=== PATIENT | male | born 1950 | race Caucasian/White ===

== ENCOUNTER → 2020-07-09 08:20 | Outpatient (BNVA) | payer OTHER, MEDICARE, SELFPAY | PROVIDERS: PCP Nurse Practitioner Family; Referring Provider Nurse Practitioner Family; Visit Provider Physician Assistant | DX: Z76.89 Persons encountering health services in other specified circumstances (principal) ==

== ENCOUNTER → 2020-08-18 10:09 | Outpatient (BNVA) | payer OTHER, MEDICARE, SELFPAY | PROVIDERS: PCP Nurse Practitioner Family; Referring Provider Nurse Practitioner Family; Visit Provider Physician Assistant | DX: Z76.89 Persons encountering health services in other specified circumstances (principal) ==

== ENCOUNTER → 2020-11-11 08:43 | Outpatient (BNVA) | payer OTHER, MEDICARE, SELFPAY | PROVIDERS: PCP Internal Medicine Endocrinology, Diabetes & Metabolism; Visit Provider Physician Assistant ==

== ENCOUNTER → 2021-05-05 07:55 | Outpatient (BNVA) | payer OTHER, SELFPAY | PROVIDERS: PCP Internal Medicine Endocrinology, Diabetes & Metabolism; Visit Provider Physician Assistant | DX: K20.90 Esophagitis, unspecified without bleeding (principal); Z86.010 Personal history of colon polyps | CPT/HCPCS: 99202 ==

== ENCOUNTER 2021-07-14 07:37 | Day surgery (SDC) | payer OTHER, SELFPAY ==
[2021-07-08 12:08] VITALS: BMI 29.1
[2021-07-08 12:13] VITALS: BP 116/74; PULSE 68; RESP 20; O2SAT 96
--- NOTE | 2021-07-08 12:31 | HO.ANESPROP2 ---
Documented by User: Hanane Ge NP 07/08/21 12:45 HPI - Anesthesia Eval Consult details Narrative: 70yo M for Upper Endoscopy and Colonoscopy Cardiac cleared at moderate risk h/o aflutter with hypovolemia - eliquis d/c'd by cardiol; pt on plavix/asa. To hold plavix preop, remain on asa PMFSH Active Problems Active Problems: All Active Problems (Updated 07/08/21 @ 11:57 by Minerva Chaparro RN) Elevated PSA (Acute) S/P triple vessel bypass (Acute) Esophagitis (Acute) History of colon polyps (Acute) Dyslipidemia (Acute) Past Medical History Medical History Anxiety CAD (coronary artery disease) Dyslipidemia Esophagitis History of colon polyps Large hiatal hernia Paroxysmal atrial fibrillation PVD (peripheral vascular disease) Family History Family History Mother Colon cancer Family history of problems with anesthesia: No Surgical History Surgical History H/O colonoscopy History of esophagogastroduodenoscopy (EGD) History of left-sided carotid endarterectomy History of repair of hiatal hernia Hx of cardiac catheterization Hx of cervical discectomy Hx of hand surgery S/P triple vessel bypass History of Problems with Anesthesia: No Social History Social History (Updated 05/05/21 @ 08:15 by Angelina Lockwood PA-C) Household Members: Spouse Household Members Other:: Are you a primary critical care educator to a significant other at home: No Do you presently have visiting nurse or other home services: No Alcohol intake: current Patient Tobacco Use Status: Former Tobacco user Quit Date: age 29 Tobacco use type: Cigarette Years Smoked: 13 Use of substances other than those prescribed or required for medical reasons: Yes Have you been hit, kicked, punched, or otherwise hurt by someone within the past year? If so, by whom?: No Are you DNR?: No Advance Directives Information Provided: Yes (informational brochure given) Advance Directives on File: No Recently lost weight without trying: No Eating poorly because of decreased appetite: No Nutrition Risks: No Nutritional Risk Poor oral hygiene: No Current occupational status: employed Meds Allergies Allergy/AdvReac Type Severity Reaction Status Date / Time No Known Allergies Allergy Verified 07/07/21 10:20 [No Known Allergies*] Home Medications Medication Instructions Recorded Confirmed Last Taken Type aspirin 81 mg tablet,delayed 81 mg PO DAILY 07/09/20 07/07/21 07/08/21 History release diazepam 5 mg tablet 5 mg PO BEDTIME PRN 07/09/20 07/07/21 Unknown History fluticasone propionate 50 1 spray INTRANASAL DAILY 07/09/20 07/07/21 Unknown History mcg/actuation nasal spray,suspension (Allergy Relief (fluticasone)) metoprolol succinate 25 mg 25 mg PO DAILY 07/09/20 07/07/21 Unknown History tablet,extended release 24 hr omega 2-yqx-elg-fish oil 300 1 cap PO DAILY 07/09/20 07/07/21 Unknown History mg-1,000 mg capsule (Fish Oil) omeprazole 20 mg capsule,delayed 20 mg PO DAILY 07/09/20 07/07/21 Unknown History release atorvastatin 80 mg tablet 80 mg PO BEDTIME 07/07/21 07/07/21 Unknown History clopidogrel 75 mg tablet 75 mg PO DAILY 07/07/21 07/07/21 07/08/21 History furosemide 20 mg tablet 20 mg PO DAILY PRN 07/07/21 07/07/21 Unknown History apixaban 5 mg tablet (Eliquis) 1 tab PO BID 07/14/21 07/14/21 07/08/21 History Exam Exam Date and Time: July 08, 2021 1231 Height,Weight and Vital Signs: Height 5 ft 11 in Weight 94.801 kg Last Vital Signs Pulse 68 07/08/21 12:13 Resp 20 07/08/21 12:13 BP 116/74 07/08/21 12:13 Pulse Ox 96 07/08/21 12:13 Narrative Narrative: EKG 01/2021 NSR with increased precordial voltage and increased T waves with nonspecific inferior T wave changes and small Q waves Echo 11/2020 LV size is normal LVEF 65-70% Diastolic filling pattern is normal Paradoxical septal motion c/w post-op status Sigmoid shaped septum with focal hypertrophy of the basal septum. 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 RV systolic function is at the low end of normal Aortic valve is mildly calcified Mild to moderate aortic regurg Trace mitral regurg No pulm htn Holter 02/2021 Predominately sinus rhythm; no afib/flutter Airway Mallampati Class: I TM Dist: >3cm Neck ROM: Full (S/p c6-7 discectomy) Loose/Missing/Broken Teeth: No Heart: RRR +M Lungs: CTAB Assessment and Plan Assessment Anesthesia Assessment: Chart Reviewed Final Anesthetic Review Family History of Problems with Anesthesia: No History of Problems with Anesthesia: No Documented by User: Esperanza Ochoa MD 07/14/21 09:34 [facility] Past Medical History Medical History Anxiety CAD (coronary artery disease) Dyslipidemia Esophagitis History of colon polyps Large hiatal hernia Paroxysmal atrial fibrillation PVD (peripheral vascular disease) Functional capacity: independent ambulation Family History Family History Mother Colon cancer Surgical History Surgical History H/O colonoscopy History of esophagogastroduodenoscopy (EGD) History of left-sided carotid endarterectomy History of repair of hiatal hernia Hx of cardiac catheterization Hx of cervical discectomy Hx of hand surgery S/P triple vessel bypass Social History Social History (Updated 05/05/21 @ 08:15 by Angelina Lockwood PA-C) Household Members: Spouse Household Members Other:: Are you a primary critical care educator to a significant other at home: No Do you presently have visiting nurse or other home services: No Alcohol intake: current Patient Tobacco Use Status: Former Tobacco user Quit Date: age 29 Tobacco use type: Cigarette Years Smoked: 13 Use of substances other than those prescribed or required for medical reasons: Yes Have you been hit, kicked, punched, or otherwise hurt by someone within the past year? If so, by whom?: No Are you DNR?: No Advance Directives Information Provided: Yes (informational brochure given) Advance Directives on File: No Recently lost weight without trying: No Eating poorly because of decreased appetite: No Nutrition Risks: No Nutritional Risk Poor oral hygiene: No Current occupational status: employed Meds Allergies Allergy/AdvReac Type Severity Reaction Status Date / Time No Known Allergies Allergy Verified 07/07/21 10:20 [No Known Allergies*] Home Medications Medication Instructions Recorded Confirmed Last Taken Type aspirin 81 mg tablet,delayed 81 mg PO DAILY 07/09/20 07/07/21 07/08/21 History release diazepam 5 mg tablet 5 mg PO BEDTIME PRN 07/09/20 07/07/21 Unknown History fluticasone propionate 50 1 spray INTRANASAL DAILY 07/09/20 07/07/21 Unknown History mcg/actuation nasal spray,suspension (Allergy Relief (fluticasone)) metoprolol succinate 25 mg 25 mg PO DAILY 07/09/20 07/07/21 Unknown History tablet,extended release 24 hr omega 8-vzv-jdc-fish oil 300 1 cap PO DAILY 07/09/20 07/07/21 Unknown History mg-1,000 mg capsule (Fish Oil) omeprazole 20 mg capsule,delayed 20 mg PO DAILY 07/09/20 07/07/21 Unknown History release atorvastatin 80 mg tablet 80 mg PO BEDTIME 07/07/21 07/07/21 Unknown History clopidogrel 75 mg tablet 75 mg PO DAILY 07/07/21 07/07/21 07/08/21 History furosemide 20 mg tablet 20 mg PO DAILY PRN 07/07/21 07/07/21 Unknown History apixaban 5 mg tablet (Eliquis) 1 tab PO BID 07/14/21 07/14/21 07/08/21 History Assessment and Plan Assessment Anesthesia Assessment: Anesthesia Plan Discussed Final Anesthetic Review ASA Class: II Final Preanesthetic Review: No Changes in Pt Med Stat Patient Risk: Intermediate Procedure Risk: Low Anesthetic Plan Anesthetic Plan: MAC: Disposition: Standard PACU
[2021-07-08 13:21] LABS: Hematocrit 45.4 % (42.0-52.0); Hemoglobin 14.2 g/dl (14.0-18.0); Mean Corpuscular HGB Conc 31.3 g/dl (31.0-36.0); Mean Corpuscular Hemoglobin 27.6 pg (27.0-33.0); Mean Corpuscular Volume 88.2 fL (80.0-98.0); Mean Platelet Volume 9.3 fL (9.4-12.4); Platelet Count 238 X10*3/uL (160-400); Red Blood Count 5.15 X10*6/uL (4.60-5.80); Red Cell Distribution Width 14.2 % (11.0-16.0); White Blood Count 7.9 X10*3/uL (4.8-10.8)
[2021-07-08 13:51] LABS: Alanine Aminotransferase 23 U/L (0-40); Albumin Level 4.1 g/dL (3.5-5.0); Alkaline Phosphatase 82 U/L (39-117); Anion Gap 13 (12-20); Aspartate Amino Transferase 20 U/L (5-37); Bilirubin Total 0.4 mg/dL (0.0-1.0); Blood Urea Nitrogen 19 mg/dL (9-16); Calcium 9.6 mg/dL (8.4-10.2); Carbon Dioxide 24 mmol/L (22-29); Chloride 111 mmol/L (96-108); Estimated Glomerular Filt Rate > 60; Glucose Random 90 mg/dL (60-115); Potassium 5.5 mmol/L (3.3-5.1); Sodium 142 mmol/L (135-145); Total Protein 6.8 g/dL (6.5-8.0)
[2021-07-14 08:23] VITALS: BP 137/85; PULSE 67; RESP 16; TEMP 36.1; O2SAT 95
--- NOTE | 2021-07-14 09:02 | MHC.SHP ---
Pre-Procedural Eval Section A Date of Service: 07/14/21 The patient is an INPATIENT: No The History & Physical has been completed within 30 days and I have reviewed it.: No Section B Chief Complaint: hx of colonic polyps Details of Present Illness: GERD, screening Relevant Family History (Specify if Yes): Yes Relevant Social History: None Present Medications: see Short Stay Collaborative assessment Medical History: Significant History (Dyslipidemia Esophagitis History of colon polyps Large hiatal hernia) History of Previous Operations: Relevant previous surgery/procedure and date(s) (S/P triple vessel bypass) Allergies: Allergies Allergy/AdvReac Type Severity Reaction Status Date / Time No Known Allergies Allergy Verified 07/07/21 10:20 [No Known Allergies*] Review of Systems Sugical H&P ROS: Negative: Constitution, Cardiovascular, Respiratory and Gastrointestinal Exam Surgical H&P Exam: Normal: Heart, Normal: Lungs, Normal: Extremities and Normal: Abdomen Plan Diagnosis/Plan: Unchanged I have reviewed the history and physical and performed a pertinent physical examination on my patient. No changes have occurred unless specified.
--- NOTE | 2021-07-14 09:48 | P.BOP_ITS ---
Brief Operative Note Date of Service: 07/14/21 Pre-op diagnosis: Colon cancer screening history of colon polyps, GERD Post-op diagnosis: other (GERD, gastric polyps, gastritis, colon polyps, diverticulosis, hemorrhoids) Procedure: FLEXIBLE TRANSORAL UPPER GASTROINTESTINAL ENDOSCOPY WITH BIOPSIES AND COLONOSCOPY TILL CECUM WITH BIOPSIES UPPER ENDOSCOPY Consent: Indications for the procedure and potential complications of bleeding, perforation, reaction to medications and missed diagnosis were discussed with the patient and informed consent was obtained. Instrument: Olympus GIF H 190 mid size upper endoscope Monitoring: Vital signs and clinical assessment, continuous EKG monitoring, Pulse oximetry, Carbon Dioxide monitoring and blood pressure monitoring were done throughout the procedure. Procedure: The patient was placed in the left lateral decubitis position and pre-procedure medications were administered and a bite block was placed. The endoscope was inserted into the mouth and advanced under direct vision to the third part of duodenum. A careful inspection was made as the upper endoscope was withdrawn including a retroflexed examination of the proximal stomach; Findings and interventions are described below. Findings: Larynx: Normal Esophagus: GE junction at 36 cms. No esophagitis or Quinonez's. Stricture noted on past EGD resolved. Stomach: Moderate diffuse gastric erythema with nodular appearing mucosa in the gastric body.. Biopsies were obtained from the body and antrum. Two 5 to 10 mm benign appearing polyps in the gastric body - biopsied. Grade 2 flap valve on retroflexed examination of the cardia. Duodenum: Normal bulb and descending duodenum Intervention: Biopsies as noted above COLONOSCOPY PROCEDURE NOTE Consent: Indications for the procedure and potential complications of bleeding, perforation, reaction to medications and missed diagnosis were discussed with the patient and informed consent was obtained. Instrument: Olympus PCF H 190 L variable stiffness pediatric colonoscope Monitoring: Vital signs and clinical assessment, intermittent blood pressure monitoring, continuous EKG monitoring, Pulse oximetry and Carbon Dioxide monitoring were done throughout the procedure. Colon withdrawl time was 19 minutes. Procedure: The patient was placed in the left lateral decubitis position and pre-procedure medications were administered. After a digital rectal examination of the ano-rectum, the video colonoscope was inserted into the rectum and advanced through the colon to the cecum. The colonoscope was slowly withdrawn in a retrograde panoramic fashion and the colon mucosa was carefully examined including a retroflexed view of the rectum. Findings and interventions are described below. Procedure Difficulty: : Without difficulty Findings: Terminal Ileum: Not evaluated Cecum: Normal Ascending Colon: Normal Transverse Colon: Two 5-6 mm sessile polyps removed with a cold bx. Descending Colon: Moderate diverticulosis Sigmoid Colon: A 6-7 mm sessile polyp removed with a cold bx and moderate diverticulosis Rectum: Normal Ano-rectum: Large internal hemorrhoids Colon preparation: Good after some irrigation Impression and Post Procedure Diagnosis: Endoscopy Findings: STOMACH: Moderate diffuse gastric erythema with nodular appearing mucosa in the gastric body.. Biopsies were obtained from the body and antrum. Two 5 to 10 mm benign appearing polyps in the gastric body - biopsied. DUODENUM: Normal Colonoscopy Findings: Three small polyps removed Moderate diverticulosis seen in the left colon Large hemorrhoids on retroflexed exam. Plan: Await pathology results Patient has an appointment on 07/28/21 in the GI Clinic with TEO Lawrence . Repeat Colonoscopy interval based on path results - in 3-5 years if polyps are adenomatous and 10 years if polyps are hyperplastic. Above findings were reviewed with the patient and GERD, gastric polyps, colon p olyps and diverticulosis handouts were given in the discharge area Surgeon: Chapito Escalante MD Anesthesia: MAC (Dr Breaux) Was an Scientific Software Developer used for this Procedure?: Yes Scientific Software Developer: Susan Mendieta Estimated blood loss (mL): 0 Pathology: other (A. gastric antrum bxs, R/O H. pylori B. gastric polyp bxs C. gastric body bxs D. transverse colon polyps (2) E. sigmoid polyp) Condition: stable Disposition: PACU
--- NOTE | 2021-07-14 09:54 | HO.ANESPROP2 ---
[facility] Active Problems Active Problems: All Active Problems (Updated 07/08/21 @ 12:36 by Minerva Chaparro RN) Elevated PSA (Acute) S/P triple vessel bypass (Acute) Esophagitis (Acute) History of colon polyps (Acute) Dyslipidemia (Acute) Past Medical History Medical History Anxiety CAD (coronary artery disease) Dyslipidemia Esophagitis History of colon polyps Large hiatal hernia Paroxysmal atrial fibrillation PVD (peripheral vascular disease) Functional capacity: independent ambulation Family History Family History Mother Colon cancer Family history of problems with anesthesia: No Surgical History Surgical History H/O colonoscopy History of esophagogastroduodenoscopy (EGD) History of left-sided carotid endarterectomy History of repair of hiatal hernia Hx of cardiac catheterization Hx of cervical discectomy Hx of hand surgery S/P triple vessel bypass History of Problems with Anesthesia: No Social History Social History (Updated 05/05/21 @ 08:15 by Angelina Lockwood PA-C) Household Members: Spouse Household Members Other:: Are you a primary physician assistant primary care to a significant other at home: No Do you presently have visiting nurse or other home services: No Alcohol intake: current Patient Tobacco Use Status: Former Tobacco user Quit Date: age 29 Tobacco use type: Cigarette Years Smoked: 13 Use of substances other than those prescribed or required for medical reasons: Yes Have you been hit, kicked, punched, or otherwise hurt by someone within the past year? If so, by whom?: No Are you DNR?: No Advance Directives Information Provided: Yes (informational brochure given) Advance Directives on File: No Recently lost weight without trying: No Eating poorly because of decreased appetite: No Nutrition Risks: No Nutritional Risk Poor oral hygiene: No Current occupational status: employed Meds Allergies Allergy/AdvReac Type Severity Reaction Status Date / Time No Known Allergies Allergy Verified 07/07/21 10:20 [No Known Allergies*] Active Medications: Current Medications Lactated Ringer's (Lr) 1,000 mls @ 100 mls/hr IVCONT .Q10H [facility] Home Medications Medication Instructions Recorded Confirmed Last Taken Type aspirin 81 mg tablet,delayed 81 mg PO DAILY 07/09/20 07/07/21 07/08/21 History release diazepam 5 mg tablet 5 mg PO BEDTIME PRN 07/09/20 07/07/21 Unknown History fluticasone propionate 50 1 spray INTRANASAL DAILY 07/09/20 07/07/21 Unknown History mcg/actuation nasal spray,suspension (Allergy Relief (fluticasone)) metoprolol succinate 25 mg 25 mg PO DAILY 07/09/20 07/07/21 Unknown History tablet,extended release 24 hr omega 0-zzu-pmz-fish oil 300 1 cap PO DAILY 07/09/20 07/07/21 Unknown History mg-1,000 mg capsule (Fish Oil) omeprazole 20 mg capsule,delayed 20 mg PO DAILY 07/09/20 07/07/21 Unknown History release atorvastatin 80 mg tablet 80 mg PO BEDTIME 07/07/21 07/07/21 Unknown History clopidogrel 75 mg tablet 75 mg PO DAILY 07/07/21 07/07/21 07/08/21 History furosemide 20 mg tablet 20 mg PO DAILY PRN 07/07/21 07/07/21 Unknown History apixaban 5 mg tablet (Eliquis) 1 tab PO BID 07/14/21 07/14/21 07/08/21 History Exam Exam Date and Time: July 14, 2021 0954 Height,Weight and Vital Signs: Height 5 ft 11 in Weight 94.801 kg Last Vital Signs Temp 96.9 F 07/14/21 08:23 Pulse 67 07/14/21 08:23 Resp 16 07/14/21 08:23 BP 137/85 07/14/21 08:23 Pulse Ox 95 07/14/21 08:23 Pertinent Lab Results Pertinent Lab Results: Laboratory Tests 07/08/21 07/08/21 12:53 12:53 WBC 7.9 RBC 5.15 Hgb 14.2 Hct 45.4 MCV 88.2 MCH 27.6 MCHC 31.3 RDW 14.2 Plt Count 238 MPV 9.3 L Absolute Nucleated RBC 0.000 Nucleated RBC % (auto) 0.0 Sodium 142 Potassium 5.5 H Chloride 111 H Carbon Dioxide 24 Anion Gap 13 BUN 19 H Creatinine 1.05 Estim Creat Clear Calc 78.0 Estimated GFR > 60 Random Glucose 90 Calcium 9.6 Total Bilirubin 0.4 AST 20 ALT 23 Alkaline Phosphatase 82 Total Protein 6.8 Albumin 4.1 Airway Mallampati Class: II TM Dist: >3cm Neck ROM: Full Heart: RarR Lungs: CTA Assessment and Plan Final Anesthetic Review Family History of Problems with Anesthesia: No History of Problems with Anesthesia: No ASA Class: II Final Preanesthetic Review: No Changes in Pt Med Stat Patient Risk: Intermediate Procedure Risk: Low Anesthetic Plan Anesthetic Plan: MAC: Disposition: Standard PACU
--- NOTE | 2021-07-14 10:32 | P.OP_ITS ---
Operative Note Operative Note Date of Service: 07/14/21 Narrative: Pre-op diagnosis:?Colon cancer screening history of colon polyps, GERD Post-op diagnosis:?other (GERD, gastric polyps, gastritis, colon polyps, diverticulosis, hemorrhoids) Procedure:? FLEXIBLE TRANSORAL UPPER GASTROINTESTINAL ENDOSCOPY WITH BIOPSIES AND COLONOSCOPY TILL CECUM WITH BIOPSIES UPPER ENDOSCOPY Consent:?Indications for the procedure and potential complications of bleeding, perforation, reaction to medications and missed diagnosis were discussed with the patient and informed consent was obtained. Instrument:?Olympus GIF H 190 mid size upper endoscope Monitoring: Vital signs and clinical assessment, continuous EKG monitoring, Pulse oximetry, Carbon Dioxide monitoring and blood pressure monitoring were done throughout the procedure. Procedure:?The patient was placed in the left lateral decubitis position and pre-procedure medications were administered and a bite block was placed. The endoscope was inserted into the mouth and advanced under direct vision to the third part of duodenum. A careful inspection was made as the upper endoscope was withdrawn including a retroflexed examination of the proximal stomach; Findings and interventions are described below. Findings: Larynx:? Normal Esophagus:?GE junction at 36 cms. ? No esophagitis or Quinonez's. Stricture noted on past EGD resolved. Stomach:?Moderate diffuse gastric erythema with nodular appearing mucosa in the gastric body.. Biopsies were obtained from the body and antrum. Two 5 to 10 mm benign appearing polyps in the gastric body - biopsied. Grade 2 flap valve on retroflexed examination of the cardia. Duodenum:?Normal bulb and descending duodenum Intervention:?Biopsies as noted above COLONOSCOPY PROCEDURE NOTE Consent:?Indications for the procedure and potential complications of bleeding, perforation, reaction to medications and missed diagnosis were discussed with the patient and informed consent was obtained. Instrument:?Olympus PCF H 190 L variable stiffness pediatric colonoscope Monitoring:?Vital signs and clinical assessment, intermittent blood pressure monitoring, continuous EKG monitoring, Pulse oximetry and Carbon Dioxide monitoring were done throughout the procedure. Colon withdrawl time was 19 minutes. Procedure:?The patient was placed in the left lateral decubitis position and pre-procedure medications were administered. After a digital rectal examination of the ano-rectum, the video colonoscope was inserted into the rectum and advanced through the colon to the cecum. The colonoscope was slowly withdrawn in a retrograde panoramic fashion and the colon mucosa was carefully examined including a retroflexed view of the rectum. Findings and interventions are described below. Procedure Difficulty:?: Without difficulty Findings: Terminal Ileum: Not evaluated Cecum:? Normal Ascending Colon:? Normal Transverse Colon:? Two 5-6 mm sessile polyps removed with a cold bx. Descending Colon:? Moderate diverticulosis Sigmoid Colon:? A 6-7 mm sessile polyp removed with a cold bx and moderate diverticulosis Rectum:? Normal Ano-rectum:? Large internal hemorrhoids Colon preparation:? Good? after some irrigation Impression and Post Procedure Diagnosis: Endoscopy Findings: STOMACH: Moderate diffuse gastric erythema with nodular appearing mucosa in the gastric body.. Biopsies were obtained from the body and antrum. Two 5 to 10 mm benign appearing polyps in the gastric body - biopsied. DUODENUM: Normal Colonoscopy Findings: Three small polyps removed Moderate diverticulosis seen in the left colon Large hemorrhoids on retroflexed exam. Plan: Await pathology results Patient has an appointment on 07/28/21 in the GI Clinic with TEO Lawrence . Repeat Colonoscopy interval based on path results - in 3-5 years if polyps are adenomatous and 10 years if polyps are hyperplastic. Above findings were reviewed with the patient and GERD, gastric polyps, colon polyps and diverticulosis handouts were given in the discharge area Surgeon:?Chapito Escalante MD Anesthesia:?MAC (Dr Breaux) Was an Marine Operations Coordinator used for this Procedure?:?Yes Marine Operations Coordinator:?Susan Mendieta Estimated blood loss (mL):?0 Pathology:?other (A. gastric antrum bxs, R/O H. pylori? B. gastric polyp bxs? C. gastric body bxs? D. transverse colon polyps (2)? E. sigmoid polyp) Condition:?stable Disposition:?PACU
[2021-07-14 10:35] VITALS: BP 84/56; PULSE 75; RESP 16; TEMP 37; O2SAT 97
[2021-07-14 10:50] VITALS: BP 115/60; PULSE 68; RESP 16; TEMP 37; O2SAT 96
--- NOTE | 2021-07-14 11:57 | HO.POSTANES ---
Post Anesthesia Evaluation Post Anesthesia Evaluation Vital Signs: Vital Signs Temp Pulse Resp BP Pulse Ox 07/14/21 10:50 98.6 F 68 16 115/60 96 07/14/21 10:35 98.6 F 75 16 84/56 L 97 07/14/21 08:23 96.9 F 67 16 137/85 95 Anesthesia: Monitored Mental Status: Awake Pain Control: Satisfactory Nausea/Vomiting: None Hydration: Adequate Anesthesia-Related Issues: No Anes. Related Issues
== END 2021-07-14 11:23 | disposition home or self-care (01) ==
PROVIDERS: Nurse Practitioner; PCP Nurse Practitioner Family; Visit Provider Internal Medicine Gastroenterology
PROC: (CPT 45380; principal; 2021-07-14 09:00)
DX: Z12.11 Encounter for screening for malignant neoplasm of colon (principal); Z86.010 Personal history of colon polyps; D12.3 Benign neoplasm of transverse colon; D12.5 Benign neoplasm of sigmoid colon; K57.30 Diverticulosis of large intestine without perforation or abscess without bleeding; K64.8 Other hemorrhoids; K20.90 Esophagitis, unspecified without bleeding; K29.50 Unspecified chronic gastritis without bleeding; K21.9 Gastro-esophageal reflux disease without esophagitis; K31.7 Polyp of stomach and duodenum
CPT/HCPCS: 45380; 43239; 36415; 80053; 85027; 88305; 88342

== ENCOUNTER → 2021-10-27 07:49 | Outpatient (BNVA) | payer OTHER, SELFPAY | PROVIDERS: PCP Nurse Practitioner Family; Visit Provider Physician Assistant | DX: K57.30 Diverticulosis of large intestine without perforation or abscess without bleeding (principal); Z12.11 Encounter for screening for malignant neoplasm of colon; Z79.899 Other long term (current) drug therapy | CPT/HCPCS: 99212 ==

== ENCOUNTER 2024-02-14 13:59 | Outpatient (AMB) | payer OTHER, SELFPAY ==
--- NOTE | 2024-02-14 14:11 | MHC.OFFVIS ---
Vital Signs 02/14/24 14:16 Height 5 ft 11 in Weight 215 lb BMI 30.0 BP 161/80 H Blood Pressure Location Rt brachial Position Sitting Pulse 68 Intake Visit Reasons: Rt inguinal hernia Intake Note: Patient referred by MARK/ [facility] for Rt inguinal hernia. Noticed after lifting a heavy gun case 2m ago. Patient c/o: rt groin lump. Patient traveling to [place] in March. Would like to have surgery before vacation. Had consultation at [facility] but they are scheduling for April. Physical Plant Manager Required: No Accompanied by: Self / Same As Patient Allergies No Known Allergies [No Known Allergies*] Allergy (Verified 02/14/24 14:15) HPI Comments Details: Patient presents for evaluation of bilateral inguinal hernias. He has had this several months time. Right is larger and more symptomatic. Patient was quite active. It does appreciable heavy lifting and straining. No other GI issues or complaints. Chart was reviewed and patient evaluated [facility] Medical History Paroxysmal atrial fibrillation PVD (peripheral vascular disease) Anxiety CAD (coronary artery disease) Large hiatal hernia Esophagitis History of colon polyps Dyslipidemia Surgical History Hx of cervical discectomy Hx of hand surgery History of esophagogastroduodenoscopy (EGD) H/O colonoscopy History of left-sided carotid endarterectomy Hx of cardiac catheterization History of repair of hiatal hernia S/P triple vessel bypass Family History Mother Colon cancer Social History Household Members: Spouse Household Members Other:: Are you a primary health and social care teacher to a significant other at home: No Do you presently have visiting nurse or other home services: No Alcohol intake: current Patient Tobacco Use Status: Former Tobacco user Tobacco use type: Cigarette Years Smoked: 13 Current occupational status: employed Physical Exam Vital Signs: Last Vital Signs Pulse 68 02/14/24 14:16 BP 161/80 H 02/14/24 14:16 BMI result Body Mass Index 30.0 Chest Other: Chest breath sounds bilaterally, HS 1 in 2 GI Other: Patient was examined both supine and standing with Valsalva. Abdomen is soft and benign. Genitalia within normal limits. Patient has a very large reducible right inguinal hernia and a moderately sized reducible left inguinal hernia. Assessment & Plan Assessment & Plan (1) Bilateral inguinal hernia: Code(s): K40.20 - Bilateral inguinal hernia, without obstruction or gangrene, not specified as recurrent Category: Surgical Plan Patient would like to have these repaired. Risks, benefits, alternatives of bilateral open inguinal hernia repair with mesh were reviewed with the patient and included but not limited to bleeding, infection, recurrence, numbness, pain, scarring and the patient wishes to proceed. Arrangements made for this. All questions answered. Patient is unclear about his medicines but he does know he takes a blood thinner. We will contact his Cardiology regarding holding anticoagulation a few days prior to the procedure. Coding Level of Care Code New Pt Level 5 (60576) Diagnoses Bilateral inguinal hernia K40.20
[2024-02-14 14:16] VITALS: BP 161/80; PULSE 68
== END 2024-02-14 14:22 | disposition home or self-care (01) ==
PROVIDERS: PCP Nurse Practitioner Family; Referring Provider Nurse Practitioner Family; Visit Provider Surgery
DX: K40.20 Bilateral inguinal hernia, without obstruction or gangrene, not specified as recurrent (principal)
CPT/HCPCS: 99204

== ENCOUNTER → 2024-02-14 13:59 | Outpatient (BNVA) | payer OTHER, SELFPAY | PROVIDERS: PCP Nurse Practitioner Family; Referring Provider Nurse Practitioner Family; Visit Provider Surgery | DX: Z01.818 Encounter for other preprocedural examination (principal); K40.20 Bilateral inguinal hernia, without obstruction or gangrene, not specified as recurrent | CPT/HCPCS: 99202 ==

== ENCOUNTER → 2024-02-22 10:17 | Outpatient (BNV) | payer OTHER, SELFPAY | PROVIDERS: PCP Nurse Practitioner Family; Visit Provider Internal Medicine Cardiovascular Disease | DX: R94.31 Abnormal electrocardiogram [ECG] [EKG] (principal) | CPT/HCPCS: 93010 ==

== ENCOUNTER 2024-02-27 11:44 | Day surgery (SDC) | payer OTHER, SELFPAY ==
--- NOTE | 2024-02-22 | ECG_ITS ---
Test Reason : pre op Blood Pressure : / mmHG Vent. Rate : 063 BPM Atrial Rate : 063 BPM P-R Int : 170 ms QRS Dur : 166 ms QT Int : 440 ms P-R-T Axes : -12 046 000 degrees QTc Int : 450 ms Normal sinus rhythm Right bundle branch block Possible Inferior infarct , age undetermined Abnormal ECG No previous ECGs available Referred By: Hanane Ge Electronically Signed By:GEGE CASTANEDA MD
[2024-02-22 09:38] VITALS: BP 146/92; PULSE 66; RESP 16; O2SAT 98
--- NOTE | 2024-02-22 09:55 | P.CONAN_ITS ---
Documented by User: Hanane Ge NP 02/22/24 10:13 HPI - Anesthesia Eval Consult details Narrative: 73yo M for Bilateral Hernia Inguinal Reducible with mesh, 02/27/24 Cardiac optimized per addendum to office visit note Pt reports noncompliance with medication. Educated and encouraged to continue metoprolol and asa daily up to surgery No recent illness No CP/SOB with strength exercise Follows [facility] Cardiology. Last office visit 05/2023. Routine echo pending 02/23/24. Carotid ds s/p CEA 2019 CABG x 2019 GERD: prn ppi PMFSH Active Problems Active Problems: All Active Problems Bilateral inguinal hernia (Acute) Diverticulosis of colon (Acute) Adenomatous colon polyp (Acute) Elevated PSA (Acute) S/P triple vessel bypass (Acute) Esophagitis (Acute) History of colon polyps (Acute) Dyslipidemia (Acute) Past Medical History Medical History (Updated 02/22/24 @ 09:22 by Mara Eugene RN) Arthritis Urinary tract infection Numbness Mild cognitive impairment of uncertain or unknown etiology Back pain Impaired fasting glucose Insomnia GERD (gastroesophageal reflux disease) Thyroid disease ADD (attention deficit disorder) Aortic regurgitation Hyperlipidemia Hearing loss Murmur BPH (benign prostatic hyperplasia) Carotid artery stenosis Paroxysmal atrial fibrillation PVD (peripheral vascular disease) Anxiety CAD (coronary artery disease) Large hiatal hernia Esophagitis History of colon polyps Dyslipidemia Family History Family History Mother Colon cancer Family history of problems with anesthesia: No Surgical History Surgical History (Updated 02/22/24 @ 09:24 by Mara Eugene RN) Hx of carpal tunnel repair Hx of cervical discectomy Hx of hand surgery History of esophagogastroduodenoscopy (EGD) H/O colonoscopy History of left-sided carotid endarterectomy Hx of cardiac catheterization History of repair of hiatal hernia S/P triple vessel bypass History of Problems with Anesthesia: No Social History Social History Household Members: Spouse Household Members Other:: Are you a primary home care chaplain to a significant other at home: No Do you presently have visiting nurse or other home services: No Alcohol intake: current Alcohol intake frequency: a few times a week Patient Tobacco Use Status: Former Tobacco user Tobacco use type: Cigarette Years Smoked: 13 Use of substances other than those prescribed or required for medical reasons: Yes Substance Use Frequency: Occasionally Have you been hit, kicked, punched, or otherwise hurt by someone within the past year? If so, by whom?: No Are you DNR?: No Advance Directives: No Advance Directives Information Provided: Yes Advance Directives on File: No Recently lost weight without trying: No Eating poorly because of decreased appetite: Yes Nutrition Risks: No Nutritional Risk Poor oral hygiene: Yes (two missing teeth,) Current occupational status: employed Meds Allergies Allergy/AdvReac Type Severity Reaction Status Date / Time No Known Allergies Allergy Verified 02/14/24 14:15 [No Known Allergies*] Home Medications ?Medication ?Instructions ?Recorded ?Confirmed ?Last Taken ?Type aspirin 81 mg tablet,delayed 81 mg PO DAILY 07/09/20 02/22/24 07/08/21 History release diazepam 5 mg tablet 5 mg PO BEDTIME PRN Anxiety 07/09/20 02/22/24 Unknown History fluticasone propionate 50 1 spray intranasal DAILY PRN 07/09/20 02/22/24 Unknown History mcg/actuation nasal Allergy Symptoms spray,suspension (Allergy Relief (fluticasone)) metoprolol succinate 25 mg 25 mg PO DAILY 07/09/20 02/22/24 Unknown History tablet,extended release 24 hr omega 3-uqr-bcj-fish oil 300 1 cap PO DAILY 07/09/20 02/22/24 Unknown History mg-1,000 mg capsule (Fish Oil) omeprazole 20 mg capsule,delayed 20 mg PO DAILY 07/09/20 02/22/24 Unknown History release atorvastatin 80 mg tablet 80 mg PO BEDTIME 07/07/21 02/22/24 Unknown History clopidogrel 75 mg tablet 75 mg PO DAILY 07/07/21 02/22/24 07/08/21 History dexmethylphenidate 10 mg 10 mg PO QAM PRN Anxiety 02/20/24 02/22/24 Unknown History capsule,extended release [id number] Exam Height,Weight and Vital Signs: Height 5 ft 11 in Weight 97.522 kg Last Vital Signs Pulse 66 02/22/24 09:38 Resp 16 02/22/24 09:38 BP 146/92 H 02/22/24 09:38 Pulse Ox 98 02/22/24 09:38 O2 Del Method Room Air 02/22/24 09:38 Airway Mallampati Class: III TM Dist: >3cm Neck ROM: Full Loose/Missing/Broken Teeth: Yes (Missing molars) Heart: RRR Lungs: CTAB Assessment and Plan Assessment Anesthesia Assessment: Anesthesia Plan Discussed and PAT Visit Final Anesthetic Review Family History of Problems with Anesthesia: No History of Problems with Anesthesia: No Documented by User: Esperanza Ochoa MD 02/27/24 12:10 [facility] Past Medical History Medical History (Updated 02/22/24 @ 09:22 by Mara Eugene, RN) Arthritis Urinary tract infection Numbness Mild cognitive impairment of uncertain or unknown etiology Back pain Impaired fasting glucose Insomnia GERD (gastroesophageal reflux disease) Thyroid disease ADD (attention deficit disorder) Aortic regurgitation Hyperlipidemia Hearing loss Murmur BPH (benign prostatic hyperplasia) Carotid artery stenosis Paroxysmal atrial fibrillation PVD (peripheral vascular disease) Anxiety CAD (coronary artery disease) Large hiatal hernia Esophagitis History of colon polyps Dyslipidemia Functional capacity: independent ambulation Family History Family History Mother Colon cancer Surgical History Surgical History (Updated 02/22/24 @ 09:24 by Mara Eugene, RN) Hx of carpal tunnel repair Hx of cervical discectomy Hx of hand surgery History of esophagogastroduodenoscopy (EGD) H/O colonoscopy History of left-sided carotid endarterectomy Hx of cardiac catheterization History of repair of hiatal hernia S/P triple vessel bypass Social History Social History Household Members: Spouse Household Members Other:: Are you a primary home care chaplain to a significant other at home: No Do you presently have visiting nurse or other home services: No Alcohol intake: current Alcohol intake frequency: a few times a week Patient Tobacco Use Status: Former Tobacco user Tobacco use type: Cigarette Years Smoked: 13 Use of substances other than those prescribed or required for medical reasons: Yes Substance Use Frequency: Occasionally Have you been hit, kicked, punched, or otherwise hurt by someone within the past year? If so, by whom?: No Are you DNR?: No Advance Directives: No Advance Directives Information Provided: Yes Advance Directives on File: No Recently lost weight without trying: No Eating poorly because of decreased appetite: Yes Nutrition Risks: No Nutritional Risk Poor oral hygiene: Yes (two missing teeth,) Current occupational status: employed Meds Allergies Allergy/AdvReac Type Severity Reaction Status Date / Time No Known Allergies Allergy Verified 02/14/24 14:15 [No Known Allergies*] Home Medications ?Medication ?Instructions ?Recorded ?Confirmed ?Last Taken ?Type aspirin 81 mg tablet,delayed 81 mg PO DAILY 07/09/20 02/22/24 07/08/21 History release diazepam 5 mg tablet 5 mg PO BEDTIME PRN Anxiety 07/09/20 02/22/24 Unknown History fluticasone propionate 50 1 spray intranasal DAILY PRN 07/09/20 02/22/24 Unknown History mcg/actuation nasal Allergy Symptoms spray,suspension (Allergy Relief (fluticasone)) metoprolol succinate 25 mg 25 mg PO DAILY 07/09/20 02/22/24 Unknown History tablet,extended release 24 hr omega 0-bhb-xyw-fish oil 300 1 cap PO DAILY 07/09/20 02/22/24 Unknown History mg-1,000 mg capsule (Fish Oil) omeprazole 20 mg capsule,delayed 20 mg PO DAILY 07/09/20 02/22/24 Unknown History release atorvastatin 80 mg tablet 80 mg PO BEDTIME 07/07/21 02/22/24 Unknown History clopidogrel 75 mg tablet 75 mg PO DAILY 07/07/21 02/22/24 07/08/21 History dexmethylphenidate 10 mg 10 mg PO QAM PRN Anxiety 02/20/24 02/22/24 Unknown History capsule,extended release [id number]
[2024-02-22 10:56] LABS: Hematocrit 47.2 % (42.0-52.0); Mean Corpuscular HGB Conc 31.8 g/dl (31.0-36.0); Mean Corpuscular Hemoglobin 28.2 pg (27.0-33.0); Mean Corpuscular Volume 88.7 fL (80.0-98.0); Mean Platelet Volume 9.2 fL (9.4-12.4); Platelet Count 234 X10*3/uL (160-400); Red Blood Count 5.32 X10*6/uL (4.60-5.80)
[2024-02-22 11:53] LABS: Anion Gap 13 (12-20); Blood Urea Nitrogen 17 mg/dL (9-16); Calcium 9.6 mg/dL (8.4-10.2); Carbon Dioxide 26 mmol/L (22-29); Chloride 106 mmol/L (96-108); Creatinine Clr Calc Pharmacy 90.3; Estimated Glomerular Filt Rate > 60; Glucose Random 101 mg/dL (60-115); Potassium 4.8 mmol/L (3.3-5.1); Sodium 140 mmol/L (135-145)
[2024-02-27] VITALS (11 sets, daily range): BP systolic 134–171; BP diastolic 76–99; PULSE 58–70; RESP 16–18; TEMP 36.2–36.4; O2SAT 95–99
--- NOTE | 2024-02-27 10:33 | P.CONAN_ITS ---
[facility] Active Problems Active Problems: All Active Problems Bilateral inguinal hernia (Acute) Diverticulosis of colon (Acute) Adenomatous colon polyp (Acute) Elevated PSA (Acute) S/P triple vessel bypass (Acute) Esophagitis (Acute) History of colon polyps (Acute) Dyslipidemia (Acute) Past Medical History Medical History (Updated 02/22/24 @ 09:22 by Mara Eugene RN) Arthritis Urinary tract infection Numbness Mild cognitive impairment of uncertain or unknown etiology Back pain Impaired fasting glucose Insomnia GERD (gastroesophageal reflux disease) Thyroid disease ADD (attention deficit disorder) Aortic regurgitation Hyperlipidemia Hearing loss Murmur BPH (benign prostatic hyperplasia) Carotid artery stenosis Paroxysmal atrial fibrillation PVD (peripheral vascular disease) Anxiety CAD (coronary artery disease) Large hiatal hernia Esophagitis History of colon polyps Dyslipidemia Family History Family History Mother Colon cancer Family history of problems with anesthesia: No Surgical History Surgical History (Updated 02/22/24 @ 09:24 by Mara Eugene RN) Hx of carpal tunnel repair Hx of cervical discectomy Hx of hand surgery History of esophagogastroduodenoscopy (EGD) H/O colonoscopy History of left-sided carotid endarterectomy Hx of cardiac catheterization History of repair of hiatal hernia S/P triple vessel bypass History of Problems with Anesthesia: No Social History Social History Household Members: Spouse Household Members Other:: Are you a primary career development associate to a significant other at home: No Do you presently have visiting nurse or other home services: No Alcohol intake: current Alcohol intake frequency: a few times a week Patient Tobacco Use Status: Former Tobacco user Tobacco use type: Cigarette Years Smoked: 13 Use of substances other than those prescribed or required for medical reasons: Yes Substance Use Frequency: Occasionally Have you been hit, kicked, punched, or otherwise hurt by someone within the past year? If so, by whom?: No Are you DNR?: No Advance Directives: No Advance Directives Information Provided: No Advance Directives on File: No Recently lost weight without trying: No Eating poorly because of decreased appetite: Yes Nutrition Risks: No Nutritional Risk Poor oral hygiene: Yes (two missing teeth,) Current occupational status: employed Meds Allergies Allergy/AdvReac Type Severity Reaction Status Date / Time No Known Allergies Allergy Verified 02/14/24 14:15 [No Known Allergies*] Home Medications ?Medication ?Instructions ?Recorded ?Confirmed ?Last Taken ?Type aspirin 81 mg tablet,delayed 81 mg PO DAILY 07/09/20 02/22/24 07/08/21 History release diazepam 5 mg tablet 5 mg PO BEDTIME PRN Anxiety 07/09/20 02/22/24 Unknown History fluticasone propionate 50 1 spray intranasal DAILY PRN 07/09/20 02/22/24 Unknown History mcg/actuation nasal Allergy Symptoms spray,suspension (Allergy Relief (fluticasone)) metoprolol succinate 25 mg 25 mg PO DAILY 07/09/20 02/22/24 Unknown History tablet,extended release 24 hr omega 7-dsl-bje-fish oil 300 1 cap PO DAILY 07/09/20 02/22/24 Unknown History mg-1,000 mg capsule (Fish Oil) omeprazole 20 mg capsule,delayed 20 mg PO DAILY 07/09/20 02/22/24 Unknown History release atorvastatin 80 mg tablet 80 mg PO BEDTIME 07/07/21 02/22/24 Unknown History clopidogrel 75 mg tablet 75 mg PO DAILY 07/07/21 02/22/24 07/08/21 History dexmethylphenidate 10 mg 10 mg PO QAM PRN Anxiety 02/20/24 02/22/24 Unknown History capsule,extended release -61 Exam Height,Weight and Vital Signs: Height 5 ft 11 in Weight 97.522 kg Last Vital Signs Pulse 66 02/22/24 09:38 Resp 16 02/22/24 09:38 BP 146/92 H 02/22/24 09:38 Pulse Ox 98 02/22/24 09:38 O2 Del Method Room Air 02/22/24 09:38 Pertinent Lab Results Pertinent Lab Results: Laboratory Tests 02/22/24 09:06 WBC 7.0 RBC 5.32 Hgb 15.0 Hct 47.2 MCV 88.7 MCH 28.2 MCHC 31.8 RDW 14.0 Plt Count 234 MPV 9.2 L Absolute Nucleated RBC 0.000 Nucleated RBC % (auto) 0.0 Sodium 140 Potassium 4.8 Chloride 106 Carbon Dioxide 26 Anion Gap 13 BUN 17 H Creatinine 0.88 Estim Creat Clear Calc 90.3 Estimated GFR > 60 Random Glucose 101 Calcium 9.6 Assessment and Plan Final Anesthetic Review Family History of Problems with Anesthesia: No History of Problems with Anesthesia: No
[2024-02-27] MEDS: Lactated Ringers 1,000 ML 100 ML IVCONT (12:25)
--- NOTE | 2024-02-27 13:08 | MHC.SHP ---
Pre-Procedural Eval Section A - 24 Hr Update-Section A only Date of Service: 02/27/24 The patient is an INPATIENT: No Changes since office visit: No Cold of Flu in the past 2 weeks, No New Medical Problems, No Changes in Medication and No Patient answered all questions The patient has been examined within 24 hours of the surgical procedure. The History & Physical has been completed within 30 days and I have reviewed it.: Yes Section B - Complete if H&P > 30 days Chief Complaint: Bilateral inguinal hernia, without obstruction Allergies: Allergies Allergy/AdvReac Type Severity Reaction Status Date / Time No Known Allergies Allergy Verified 02/14/24 14:15 [No Known Allergies*] Plan I have reviewed the history and physical and performed a pertinent physical examination on my patient. No changes have occurred unless specified. Time Spent With Patient Time: Total time managing care of this patient today ____ minutes.
--- NOTE | 2024-02-27 14:04 | HO.ANESPROP2 ---
[facility] Active Problems Active Problems: All Active Problems Bilateral inguinal hernia (Acute) Diverticulosis of colon (Acute) Adenomatous colon polyp (Acute) Elevated PSA (Acute) S/P triple vessel bypass (Acute) Esophagitis (Acute) History of colon polyps (Acute) Dyslipidemia (Acute) Past Medical History Medical History Arthritis Urinary tract infection Numbness Mild cognitive impairment of uncertain or unknown etiology Back pain Impaired fasting glucose Insomnia GERD (gastroesophageal reflux disease) Thyroid disease ADD (attention deficit disorder) Aortic regurgitation Hyperlipidemia Hearing loss Murmur BPH (benign prostatic hyperplasia) Carotid artery stenosis Paroxysmal atrial fibrillation PVD (peripheral vascular disease) Anxiety CAD (coronary artery disease) Large hiatal hernia Esophagitis History of colon polyps Dyslipidemia Functional capacity: independent ambulation Family History Family History Mother Colon cancer Family history of problems with anesthesia: No Surgical History Surgical History Hx of carpal tunnel repair Hx of cervical discectomy Hx of hand surgery History of esophagogastroduodenoscopy (EGD) H/O colonoscopy History of left-sided carotid endarterectomy Hx of cardiac catheterization History of repair of hiatal hernia S/P triple vessel bypass History of Problems with Anesthesia: No Social History Social History Household Members: Spouse Household Members Other:: Are you a primary resident care manager rn to a significant other at home: No Do you presently have visiting nurse or other home services: No Alcohol intake: current Alcohol intake frequency: a few times a week Patient Tobacco Use Status: Former Tobacco user Tobacco use type: Cigarette Years Smoked: 13 Use of substances other than those prescribed or required for medical reasons: Yes Substance Use Frequency: Occasionally Have you been hit, kicked, punched, or otherwise hurt by someone within the past year? If so, by whom?: No Are you DNR?: No Advance Directives: No Advance Directives Information Provided: Yes Advance Directives on File: No Recently lost weight without trying: No Eating poorly because of decreased appetite: Yes Nutrition Risks: No Nutritional Risk Poor oral hygiene: Yes (two missing teeth,) Current occupational status: employed Meds Allergies Allergy/AdvReac Type Severity Reaction Status Date / Time No Known Allergies Allergy Verified 02/14/24 14:15 [No Known Allergies*] Active Medications: Current Medications Lactated Ringer's (Lr) 1,000 mls @ 100 mls/hr IVCONT .Q10H MATTHEW Last Admin: 02/27/24 12:25 Dose: 100 mls/hr Home Medications ?Medication ?Instructions ?Recorded ?Confirmed ?Last Taken ?Type aspirin 81 mg tablet,delayed 81 mg PO DAILY 07/09/20 02/27/24 02/26/24 History release diazepam 5 mg tablet 5 mg PO BEDTIME PRN Anxiety 07/09/20 02/22/24 Unknown History fluticasone propionate 50 1 spray intranasal DAILY PRN 07/09/20 02/22/24 Unknown History mcg/actuation nasal Allergy Symptoms spray,suspension (Allergy Relief (fluticasone)) metoprolol succinate 25 mg 25 mg PO DAILY 07/09/20 02/27/24 02/27/24 History tablet,extended release 24 hr omega 3-qwb-sjs-fish oil 300 1 cap PO DAILY 07/09/20 02/27/24 02/21/24 History mg-1,000 mg capsule (Fish Oil) omeprazole 20 mg capsule,delayed 20 mg PO DAILY 07/09/20 02/27/24 02/27/24 History release atorvastatin 80 mg tablet 80 mg PO BEDTIME 07/07/21 02/27/24 02/26/24 History clopidogrel 75 mg tablet 75 mg PO DAILY 07/07/21 02/27/24 02/21/24 History dexmethylphenidate 10 mg 10 mg PO QAM PRN Anxiety 02/20/24 02/27/24 02/26/24 History capsule,extended release [id number] Exam Height,Weight and Vital Signs: Height 5 ft 11 in Weight 97.522 kg Last Vital Signs Temp 97.1 F 02/27/24 12:23 Pulse 70 02/27/24 12:23 Resp 16 02/27/24 12:23 BP 171/99 H 02/27/24 12:23 Pulse Ox 98 02/27/24 12:23 O2 Del Method Room Air 02/27/24 12:23 Pertinent Lab Results Pertinent Lab Results: Laboratory Tests 02/22/24 09:06 WBC 7.0 RBC 5.32 Hgb 15.0 Hct 47.2 MCV 88.7 MCH 28.2 MCHC 31.8 RDW 14.0 Plt Count 234 MPV 9.2 L Absolute Nucleated RBC 0.000 Nucleated RBC % (auto) 0.0 Sodium 140 Potassium 4.8 Chloride 106 Carbon Dioxide 26 Anion Gap 13 BUN 17 H Creatinine 0.88 Estim Creat Clear Calc 90.3 Estimated GFR > 60 Random Glucose 101 Calcium 9.6 Airway Mallampati Class: II TM Dist: >3cm Neck ROM: Full Heart: RRR Lungs: CTA Assessment and Plan Assessment Anesthesia Assessment: Anesthesia Plan Discussed Final Anesthetic Review Family History of Problems with Anesthesia: No History of Problems with Anesthesia: No NPO: Yes ASA Class: III Final Preanesthetic Review: Meds/Allgs Chart Reviewed, Consent Obtained/Reviewed and Anes Risks/Benef Reviewed Patient Risk: Intermediate Procedure Risk: Low Anesthetic Plan Anesthetic Plan: GA Disposition: Standard PACU
--- NOTE | 2024-02-27 14:07 | P.CONAN_ITS ---
[facility] Active Problems Active Problems: All Active Problems Bilateral inguinal hernia (Acute) Diverticulosis of colon (Acute) Adenomatous colon polyp (Acute) Elevated PSA (Acute) S/P triple vessel bypass (Acute) Esophagitis (Acute) History of colon polyps (Acute) Dyslipidemia (Acute) HOCM Past Medical History Medical History Arthritis Urinary tract infection Numbness Mild cognitive impairment of uncertain or unknown etiology Back pain Impaired fasting glucose Insomnia GERD (gastroesophageal reflux disease) Thyroid disease ADD (attention deficit disorder) Aortic regurgitation Hyperlipidemia Hearing loss Murmur BPH (benign prostatic hyperplasia) Carotid artery stenosis Paroxysmal atrial fibrillation PVD (peripheral vascular disease) Anxiety CAD (coronary artery disease) Large hiatal hernia Esophagitis History of colon polyps Dyslipidemia Functional capacity: independent ambulation Family History Family History Mother Colon cancer Family history of problems with anesthesia: No Surgical History Surgical History Hx of carpal tunnel repair Hx of cervical discectomy Hx of hand surgery History of esophagogastroduodenoscopy (EGD) H/O colonoscopy History of left-sided carotid endarterectomy Hx of cardiac catheterization History of repair of hiatal hernia S/P triple vessel bypass History of Problems with Anesthesia: No Social History Social History Household Members: Spouse Household Members Other:: Are you a primary post acute care nurse to a significant other at home: No Do you presently have visiting nurse or other home services: No Alcohol intake: current Alcohol intake frequency: a few times a week Patient Tobacco Use Status: Former Tobacco user Tobacco use type: Cigarette Years Smoked: 13 Use of substances other than those prescribed or required for medical reasons: Yes Substance Use Frequency: Occasionally Have you been hit, kicked, punched, or otherwise hurt by someone within the past year? If so, by whom?: No Are you DNR?: No Advance Directives: No Advance Directives Information Provided: Yes Advance Directives on File: No Recently lost weight without trying: No Eating poorly because of decreased appetite: Yes Nutrition Risks: No Nutritional Risk Poor oral hygiene: Yes (two missing teeth,) Current occupational status: employed Meds Allergies Allergy/AdvReac Type Severity Reaction Status Date / Time No Known Allergies Allergy Verified 02/14/24 14:15 [No Known Allergies*] Active Medications: Current Medications Lactated Ringer's (Lr) 1,000 mls @ 100 mls/hr IVCONT .Q10H MATTHEW Last Admin: 02/27/24 12:25 Dose: 100 mls/hr Home Medications ?Medication ?Instructions ?Recorded ?Confirmed ?Last Taken ?Type aspirin 81 mg tablet,delayed 81 mg PO DAILY 07/09/20 02/27/24 02/26/24 History release diazepam 5 mg tablet 5 mg PO BEDTIME PRN Anxiety 07/09/20 02/22/24 Unknown History fluticasone propionate 50 1 spray intranasal DAILY PRN 07/09/20 02/22/24 Unknown History mcg/actuation nasal Allergy Symptoms spray,suspension (Allergy Relief (fluticasone)) metoprolol succinate 25 mg 25 mg PO DAILY 07/09/20 02/27/24 02/27/24 History tablet,extended release 24 hr omega 4-kxq-lue-fish oil 300 1 cap PO DAILY 07/09/20 02/27/24 02/21/24 History mg-1,000 mg capsule (Fish Oil) omeprazole 20 mg capsule,delayed 20 mg PO DAILY 07/09/20 02/27/24 02/27/24 History release atorvastatin 80 mg tablet 80 mg PO BEDTIME 07/07/21 02/27/24 02/26/24 History clopidogrel 75 mg tablet 75 mg PO DAILY 07/07/21 02/27/24 02/21/24 History dexmethylphenidate 10 mg 10 mg PO QAM PRN Anxiety 02/20/24 02/27/24 02/26/24 History capsule,extended release [id number] Exam Height,Weight and Vital Signs: Height 5 ft 11 in Weight 97.522 kg Last Vital Signs Temp 97.1 F 02/27/24 12:23 Pulse 70 02/27/24 12:23 Resp 16 02/27/24 12:23 BP 171/99 H 02/27/24 12:23 Pulse Ox 98 02/27/24 12:23 O2 Del Method Room Air 02/27/24 12:23 Pertinent Lab Results Pertinent Lab Results: Laboratory Tests 02/22/24 09:06 WBC 7.0 RBC 5.32 Hgb 15.0 Hct 47.2 MCV 88.7 MCH 28.2 MCHC 31.8 RDW 14.0 Plt Count 234 MPV 9.2 L Absolute Nucleated RBC 0.000 Nucleated RBC % (auto) 0.0 Sodium 140 Potassium 4.8 Chloride 106 Carbon Dioxide 26 Anion Gap 13 BUN 17 H Creatinine 0.88 Estim Creat Clear Calc 90.3 Estimated GFR > 60 Random Glucose 101 Calcium 9.6 Assessment and Plan Assessment Anesthesia Assessment: Anesthesia Plan Discussed Final Anesthetic Review Family History of Problems with Anesthesia: No History of Problems with Anesthesia: No ASA Class: III Final Preanesthetic Review: Meds/Allgs Chart Reviewed, Consent Obtained/Reviewed and Anes Risks/Benef Reviewed Anesthetic Plan Anesthetic Plan: GA Disposition: Standard PACU
--- NOTE | 2024-02-27 14:35 | W.PM.OPN ---
Operative Note Operative Note Date of Service: 02/27/24 Narrative: Preoperative diagnosis: [] Bilateral inguinal herniae Postop diagnosis: [] The same Procedure [] open bilateral inguinal hernia repair with Bard mesh Surgeon: [] Tao Cold Working Supervisor: [] Anthony Type of Anesthesia: [] LMA Indication for surgery: [] Bilateral large indirect inguinal herniae. No direct hernia bilaterally. Findings: [] Patient brought to the operating room, placed on operative table in supine position, after adequate level of general anesthesia was induced, patient's bilateral groins were prepped and draped in usual sterile fashion. Commencing with the left side, a small para inguinal incision was made and carried down through skin, subcutaneous tissue, Dee's fascia. External oblique fibers were opened their direction with care to isolate and preserve the ilioinguinal nerve throughout the procedure. Spermatic cord was identified and retracted from the field. Exploration of the cord demonstrated very large indirect hernia sac which was from the cord and reduced. No direct hernia was demonstrated. An extra-large Bard plug was placed in this defect and sutured inferiorly to the inguinal ligament, and superiorly to the transversalis fascia using interrupted 0 Ethibond suture. Wound was irrigated, secured hemostasis. Wound was closed in the following manner; external oblique fascia was closed using running 2-0 Vicryl suture. Dee's fascia was reapproximated using interrupted 3-0 Vicryl sutures. Interrupted inverted deep dermal 3-0 Vicryl sutures followed by Running subcuticular 4-0 Vicryl sutures were placed. Steri-Strips sterile dressings were applied. Next the contralateral right side was approached in the similar right small para inguinal incision and carried down through skin, subcutaneous tissue, Dee's fascia. External oblique fibers were opened their direction with care to isolate preserve the ilioinguinal nerve throughout the procedure. Spermatic cord was identified and retracted from the field. No direct hernia was demonstrated. A very large indirect hernia sac was from the cord and reduced. An extra-large plug was placed in this defect and sutured inferiorly to the inguinal ligament, and superiorly to the transversalis fascia using interrupted 0 Ethibond suture. Wound was irrigated, secured hemostasis, and closed in the following manner; external oblique fascia was closed using running 2-0 Vicryl suture. Dee's fascia was reapproximated using interrupted 3-0 Vicryl sutures. Interrupted inverted deep dermal 3-0 Vicryl sutures followed by running subcuticular 4-0 Vicryl sutures were placed. Steri-Strips and sterile dressings were applied. At the beginning of the case ilioinguinal blocks were done bilaterally and at completion of the case local incisional infiltration of 0.5% Marcaine and 1% lidocaine was also performed. Sponge, needle, and instrument counts reported correct. Patient tolerated the procedure well and emerged from anesthesia stable condition. EBL minimal Bilateral testicles were intrascrotal at completion.
[2024-02-27] MEDS: Acetaminophen 1,000 MG/100 ML PIGGYBACK 400 MG IV (14:55)
[2024-02-27] MEDS: fentaNYL citrate/PF 100 MCG/2 ML VIAL 25 MCG IVPUSH ×2 (15:15→15:55)
--- NOTE | 2024-02-27 17:41 | HO.POSTANES ---
Post Anesthesia Evaluation Post Anesthesia Evaluation Date of Service: 02/27/24 Vital Signs: Vital Signs Temp Pulse Resp BP Pulse Ox O2 Del Method O2 Flow Rate 02/27/24 16:11 Room Air 02/27/24 16:00 97.5 F 64 16 147/90 H 99 Room Air 02/27/24 15:55 61 16 151/80 H 97 Room Air 02/27/24 15:55 18 02/27/24 15:45 61 16 143/77 H 97 Room Air 02/27/24 15:30 58 18 134/82 96 Room Air 02/27/24 15:25 134/79 02/27/24 15:18 60 18 136/76 96 Room Air 02/27/24 15:03 64 16 149/84 H 97 Nasal Cannula 2 02/27/24 14:58 64 16 141/84 H 97 Nasal Cannula 2 02/27/24 14:53 68 16 147/81 H 98 Nasal Cannula 2 02/27/24 14:48 97.3 F 68 16 147/87 H 95 Nasal Cannula 2 02/27/24 12:23 97.1 F 70 16 171/99 H 98 Room Air Anesthesia: General LMA Mental Status: Awake Pain Control: Satisfactory Nausea/Vomiting: None Hydration: Adequate Anesthesia-Related Issues: No Anes. Related Issues
== END 2024-02-27 16:21 | disposition home or self-care (01) ==
PROVIDERS: Nurse Practitioner; PCP Nurse Practitioner Family; Visit Provider Surgery
PROC: (CPT 49505; principal; 2024-02-27 13:30)
DX: K40.20 Bilateral inguinal hernia, without obstruction or gangrene, not specified as recurrent (principal); I48.0 Paroxysmal atrial fibrillation; I25.10 Atherosclerotic heart disease of native coronary artery without angina pectoris; Z95.1 Presence of aortocoronary bypass graft; I73.9 Peripheral vascular disease, unspecified; K20.90 Esophagitis, unspecified without bleeding; R73.01 Impaired fasting glucose; K44.9 Diaphragmatic hernia without obstruction or gangrene; E78.5 Hyperlipidemia, unspecified; F41.9 Anxiety disorder, unspecified; Z79.82 Long term (current) use of aspirin; Z79.51 Long term (current) use of inhaled steroids; Z98.890 Other specified postprocedural states; Z87.891 Personal history of nicotine dependence
CPT/HCPCS: 49505; 36415; 80048; 85027; 93005; C1781; J0131; J0690; J1805; J2250; J2371; J2405; J2704; J2795; J3010

== ENCOUNTER → 2024-02-27 11:44 | Outpatient (BNV) | payer OTHER, SELFPAY | PROVIDERS: PCP Nurse Practitioner Family; Visit Provider Surgery | DX: K40.20 Bilateral inguinal hernia, without obstruction or gangrene, not specified as recurrent (principal) | CPT/HCPCS: 49505 ==

== ENCOUNTER 2024-03-07 08:24 | Outpatient (AMB) | payer OTHER, SELFPAY ==
--- NOTE | 2024-03-07 08:25 | MHC.OFFVIS ---
Vital Signs 03/07/24 08:31 Height 5 ft 11 in Weight 216 lb BMI 30.1 BP 145/81 H Blood Pressure Location Lt brachial Position Sitting Pulse 82 Intake Visit Reasons: S/P bilat. inguinal hernia repair w/mesh Intake Note: Patient is seen in office for post op assessment post bilateral inguinal hernia repair. Pt c/o: admits to sore, tender, denies any redness, discharge or swelling Refrigeration Specialist Required: No Accompanied by: Self / Same As Patient Allergies No Known Allergies [No Known Allergies*] Allergy (Verified 03/07/24 08:32) HPI Comments Details: Patient was doing relatively well status post bilateral inguinal hernia repair. He is tolerating a diet. He is having regular bowel habits. Patient was increasing his activity level. Incisional discomfort is markedly improved. [facility] Medical History Arthritis Urinary tract infection Numbness Mild cognitive impairment of uncertain or unknown etiology Back pain Impaired fasting glucose Insomnia GERD (gastroesophageal reflux disease) Thyroid disease ADD (attention deficit disorder) Aortic regurgitation Hyperlipidemia Hearing loss Murmur BPH (benign prostatic hyperplasia) Carotid artery stenosis Paroxysmal atrial fibrillation PVD (peripheral vascular disease) Anxiety CAD (coronary artery disease) Large hiatal hernia Esophagitis History of colon polyps Dyslipidemia Surgical History H/O bilateral inguinal hernia repair (02/27/24) Hx of carpal tunnel repair Hx of cervical discectomy Hx of hand surgery History of esophagogastroduodenoscopy (EGD) H/O colonoscopy History of left-sided carotid endarterectomy Hx of cardiac catheterization History of repair of hiatal hernia S/P triple vessel bypass Family History Mother Colon cancer Social History Household Members: Spouse Household Members Other:: Are you a primary care navigator to a significant other at home: No Do you presently have visiting nurse or other home services: No Alcohol intake: current Alcohol intake frequency: a few times a week Patient Tobacco Use Status: Former Tobacco user Tobacco use type: Cigarette Years Smoked: 13 Current occupational status: employed Physical Exam Vital Signs: Last Vital Signs Pulse 82 03/07/24 08:31 BP 145/81 H 03/07/24 08:31 BMI result Body Mass Index 30.1 GI Other: Abdomen is soft. Bilateral incisions clean dry and intact. Patient has moderate ecchymosis around the right inguinal hernia site but no evidence of any infection or recurrence. Assessment & Plan Assessment & Plan (1) Postop check: Code(s): Z09 - Encounter for follow-up examination after completed treatment for conditions other than malignant neoplasm Category: Surgical Plan Patient was given specific local wound instructions including avoiding strenuous activities, all the walking would like to do and will see me in few weeks' time for follow-up prior to his going on vacation or p.r.n.. All questions answered. Coding Level of Care Code Global (49107) Diagnoses Postop check Z09
[2024-03-07 08:31] VITALS: BP 145/81; PULSE 82; BMI 30.1
== END 2024-03-07 08:35 | disposition home or self-care (01) ==
PROVIDERS: PCP Nurse Practitioner Family; Visit Provider Surgery
DX: Z09 Encounter for follow-up examination after completed treatment for conditions other than malignant neoplasm (principal)
CPT/HCPCS: 99024

== ENCOUNTER → 2024-03-07 08:24 | Outpatient (BNVA) | payer OTHER, SELFPAY | PROVIDERS: PCP Nurse Practitioner Family; Visit Provider Surgery | DX: Z48.815 Encounter for surgical aftercare following surgery on the digestive system (principal) | CPT/HCPCS: 99212 ==

== ENCOUNTER 2024-03-19 09:48 | Outpatient (AMB) | payer OTHER, SELFPAY ==
--- NOTE | 2024-03-19 09:51 | MHC.OFFVIS ---
Vital Signs 03/19/24 09:54 Height 5 ft 11 in Weight 213 lb 13.574 oz BMI 29.8 Pulse 80 Intake Visit Reasons: S/P bilat. inguinal hernia repair w/mesh Intake Note: Patient is seen in office for post op assessment post bilateral inguinal hernia repair. Pt c/o: pain and sore, minimal redness, eating well and normal bm, denies discharge, n/v/d/c Retail Advertising Sales Manager Required: No Accompanied by: Self / Same As Patient Allergies No Known Allergies [No Known Allergies*] Allergy (Verified 03/07/24 08:32) HPI Comments Details: Patient presents for follow-up status post bilateral inguinal hernia repair. Second postop visit. Patient is doing quite well. Incisional discomfort is markedly improved. Activity levels are increasing. He is tolerating his diet. He is having regular bowel habits. Patient was going on vacation/cruise at the end of the week. [facility] Medical History Arthritis Urinary tract infection Numbness Mild cognitive impairment of uncertain or unknown etiology Back pain Impaired fasting glucose Insomnia GERD (gastroesophageal reflux disease) Thyroid disease ADD (attention deficit disorder) Aortic regurgitation Hyperlipidemia Hearing loss Murmur BPH (benign prostatic hyperplasia) Carotid artery stenosis Paroxysmal atrial fibrillation PVD (peripheral vascular disease) Anxiety CAD (coronary artery disease) Large hiatal hernia Esophagitis History of colon polyps Dyslipidemia Surgical History H/O bilateral inguinal hernia repair (02/27/24) Hx of carpal tunnel repair Hx of cervical discectomy Hx of hand surgery History of esophagogastroduodenoscopy (EGD) H/O colonoscopy History of left-sided carotid endarterectomy Hx of cardiac catheterization History of repair of hiatal hernia S/P triple vessel bypass Family History Mother Colon cancer Social History Household Members: Spouse Household Members Other:: Are you a primary rn progressive care to a significant other at home: No Do you presently have visiting nurse or other home services: No Alcohol intake: current Alcohol intake frequency: a few times a week Patient Tobacco Use Status: Former Tobacco user Tobacco use type: Cigarette Years Smoked: 13 Current occupational status: employed Physical Exam Vital Signs: Last Vital Signs Pulse 80 03/19/24 09:54 BMI result Body Mass Index 29.8 GI Other: Abdomen is soft. Bilateral wounds grossly clean dry and intact. Patient was a stitch abscess in the right lateral aspect of the incision which was uneventfully removed. Bacitracin sterile dressing applied. Well tolerated. Assessment & Plan Assessment & Plan (1) Postop check: Code(s): Z09 - Encounter for follow-up examination after completed treatment for conditions other than malignant neoplasm Category: Surgical (2) Status post bilateral hernia repair: Code(s): Z98.890 - Other specified postprocedural states; Z87.19 - Personal history of other diseases of the digestive system Category: Medical Plan Patient has been given local instructions, and will otherwise follow-up p.r.n.. All questions answered. Coding Level of Care Code Global (32643) Diagnoses Postop check Z09 Status post bilateral hernia repair Z98.890; Z87.19
[2024-03-19 09:54] VITALS: PULSE 80; BMI 29.8
== END 2024-03-19 10:12 | disposition home or self-care (01) ==
PROVIDERS: PCP Nurse Practitioner Family; Visit Provider Surgery
DX: Z09 Encounter for follow-up examination after completed treatment for conditions other than malignant neoplasm (principal); Z98.890 Other specified postprocedural states; Z87.19 Personal history of other diseases of the digestive system
CPT/HCPCS: 99024

== ENCOUNTER → 2024-03-19 09:48 | Outpatient (BNVA) | payer OTHER, SELFPAY | PROVIDERS: PCP Nurse Practitioner Family; Visit Provider Surgery | DX: Z87.19 Personal history of other diseases of the digestive system (principal); Z48.815 Encounter for surgical aftercare following surgery on the digestive system | CPT/HCPCS: 99212 ==